=== PATIENT | male | born 1990 | race Hispanic/Latino ===

== ENCOUNTER 2021-08-30 07:57 | Day surgery (SDC) | payer BC ==
[2021-08-14 16:22] LABS: BASOPHILS % (AUTO) 0.7 % (0.0-5.0); EOSINOPHILS % (AUTO) 1.3 % (0.0-8.0); LYMPHOCYTES % (AUTO) 32.1 % (21.0-51.0); MEAN CORPUSCULAR HEMOGLOBIN 31.8 pg (27.0-33.0); MEAN CORPUSCULAR HGB CONC 33.8 g/dL (32.0-36.0); MONOCYTES % (AUTO) 9.4 % (3.0-13.0); NEUTROPHILS % (AUTO) 56.2 % (40.0-77.0); PLATELET COUNT (AUTO) 221 K/uL (130-400); RED CELL DISTRIBUTION WIDTH 11.6 % (11.0-15.5); WHITE BLOOD COUNT (AUTO) 6.9 K/uL (4.8-10.8)
[2021-08-14 16:36] LABS: POTASSIUM 3.8 mmol/L (3.5-5.1)
[2021-08-14 16:43] LABS: INR 1.02 (0.85-1.15); PROTHROMBIN TIME 11.1 SEC (9.6-11.6)
[2021-08-14 16:44] LABS: PARTIAL THROMBOPLASTIN TIME 27.9 SEC (26.3-35.5)
[2021-08-15 16:17] VITALS: BP 135/85
[2021-08-25 12:25] LABS: BASOPHILS % (AUTO) 0.6 % (0.0-5.0); EOSINOPHILS % (AUTO) 1.6 % (0.0-8.0); HEMATOCRIT 47.7 % (42-54); LYMPHOCYTES % (AUTO) 34.3 % (21.0-51.0); MEAN CORPUSCULAR HEMOGLOBIN 32.2 pg (27.0-33.0); MEAN CORPUSCULAR HGB CONC 33.3 g/dL (32.0-36.0); MEAN CORPUSCULAR VOLUME 96.6 fL (79-99); MONOCYTES % (AUTO) 10.8 % (3.0-13.0); NEUTROPHILS % (AUTO) 52.5 % (40.0-77.0); PLATELET COUNT (AUTO) 202 K/uL (130-400); RED BLOOD CELL COUNT(AUTO) 4.94 MIL/uL (4.50-6.20); RED CELL DISTRIBUTION WIDTH 11.7 % (11.0-15.5)
[2021-08-25 12:36] LABS: CREATININE 0.9 mg/dL (0.5-1.5); POTASSIUM 4.1 mmol/L (3.5-5.1)
[2021-08-25 12:38] LABS: PROTHROMBIN TIME 10.9 SEC (9.6-11.6)
[2021-08-25 12:39] LABS: PARTIAL THROMBOPLASTIN TIME 28.2 SEC (26.3-35.5)
[2021-08-29 11:06] VITALS: BP 142/77
[~2021-08-30] VITALS: Ht 175.3 cm; Wt 87.7 kg
[2021-08-30] VITALS (16 sets, daily range): BP systolic 114–130; BP diastolic 63–77
[~2021-08-30 07:57] MED LIST: MULT-1367 PO
[2021-08-30] MEDS ORDERED: LACTATED RINGERS 1000ML 1,000 ML IV ONE (08:32)
[2021-08-30] MEDS ORDERED: ONDANSETRON 4MG INJ ONE (09:32)
[2021-08-30] MEDS ORDERED: CEFAZOLIN SODIUM 1 GM VIAL ONE (09:32)
[2021-08-30] MEDS ORDERED: MIDAZOLAM HCL 1 MG/ML 2ML VIAL ONE (09:32)
[2021-08-30] MEDS ORDERED: PROPOFOL 10 MG/ML 20ML VIAL IV ONE (09:36)
[2021-08-30] MEDS ORDERED: LIDOCAINE PF 100MG/5ML (2%) SYRINGE 5ML ONE (09:36)
[2021-08-30] MEDS ORDERED: ROCURONIUM 10MG/1ML SYR 10 MG/ML ML ONE (09:37)
[2021-08-30] MEDS ORDERED: FENTANYL CITRATE PF 50 MCG/1 ML 2ML VIAL ONE ×3 (09:43→10:39)
[2021-08-30] MEDS ORDERED: BUPIVACAINE/PF 0.25% 30ML VIAL IJ ONE (09:52)
[2021-08-30] MEDS ORDERED: GLYCOPYRROLATE 1 MG/5 ML SYRINGE ONE (10:50)
[2021-08-30] MEDS ORDERED: NEOSTIGMINE 5MG/5ML SYR IV ONE (10:50)
[2021-08-30] MEDS ORDERED: KETOROLAC 30MG VIAL (30MG/ML) ONE (11:14)
[2021-08-30] MEDS ORDERED: MEPERIDINE-PF 25 MG/ML SYG ONE (11:29)
== END 2021-08-30 12:42 | disposition home or self-care (01) ==
LOC: DAH 07:57
PROVIDERS: ATTEND Urology Pediatric Urology
DX: N50.89 Other specified disorders of the male genital organs (principal); D40.12 Neoplasm of uncertain behavior of left testis; C62.92 Malignant neoplasm of left testis, unspecified whether descended or undescended; Z79.01 Long term (current) use of anticoagulants; Z79.899 Other long term (current) drug therapy; Z20.822 Contact with and (suspected) exposure to COVID-19
CPT/HCPCS: 36415 ×2; 54530; 71045; 80048 ×2; 82105; 83615; 84702; 85025 ×2; 85610 ×2; 85730 ×2; 87635 ×2; 93005; A4215; A4221; A4222; A4223; A4649; A4663; A6260; C9803 ×2; G0168; J0690; J1885; J2001; J2175; J2250; J2405; J2704; J2710; J3010 ×3; J3490 ×2; J7120 ×2

== ENCOUNTER → 2023-04-30 | Outpatient (CLI) | payer BC | END | disposition home or self-care (01) | LOC: RAH 10:23 | PROVIDERS: ATTEND Internal Medicine Medical Oncology | DX: C62.12 Malignant neoplasm of descended left testis (principal) | CPT/HCPCS: 76870 ==